=== PATIENT | female | born 1990 | race Caucasian/White ===

== ENCOUNTER 2021-11-10 09:44 | Emergency (ER) | payer OTHER, MEDICAID, SELFPAY ==
[2021-11-10 09:53] VITALS: BP 146/80; PULSE 78; RESP 16; TEMP 37; O2SAT 98; BMI 25.0
--- NOTE | 2021-11-10 10:17 | ED_ITS ---
HPI - General Adult General Chief complaint: Abdominal Pain Stated complaint: r/o appendicitis Time Seen by Provider: 11/10/21 10:09 Source: patient Mode of arrival: Wheelchair Limitations: no limitations History of Present Illness HPI narrative: Patient is a 31-year-old female who is sent over from the walk-in clinic for right lower quadrant abdominal pain and concern for appendicitis. She states that yesterday she did have some lower abdominal pain but did not think much of it. No fevers. No nausea vomiting. No urinary symptoms. No vaginal bleeding. She is skilled nursing through her menstrual cycle. No change in bowel habits. She has had a tubal ligation but no other abdominal surgeries. She woke up this morning had at some point shortly after waking up she started to develop right lower quadrant pain that is worsened since then. She was able to drink a small amount of water approximately 1 hour ago without vomiting. Does have pain with movement and touching the area. Went to the walk-in clinic and sent her here to the emergency department for evaluation. Related Data Home Medications Medication Instructions Recorded Confirmed No Known Home Medications 11/10/21 11/10/21 Allergies Allergy/AdvReac Type Severity Reaction Status Date / Time No Known Drug Allergies Allergy Unverified 11/10/21 09:56 Review of Systems Constitutional Constitutional: Denies fever(s) Cardiovascular Cardiovascular: Denies chest pain and Denies dyspnea Respiratory Respiratory: Denies dyspnea Gastrointestinal Gastrointestinal: Reports as per HPI and Reports system reviewed and no additional complaints, except as documented Genitourinary Genitourinary: Reports system reviewed and no additional complaints, except as documented and Denies dysuria Integumentary/Breasts Skin/Breast: Reports system reviewed and no additional complaints, except as documented Neurologic Neurologic: Reports system reviewed and no additional complaints, except as documented Hematologic/Lymphatic On Anticoagulants: No Patient History Medical History Healthy adult Social History Smoking Status: Former smoker Smoking Status: Former smoker alcohol intake frequency: 0-2 drinks per day Substance Use Type: does not use Exam Initial Vital Signs Initial Vital Signs: Vital Signs Temperature 98.6 F 11/10/21 09:53 Pulse Rate 78 11/10/21 09:53 Respiratory Rate 16 11/10/21 09:53 Blood Pressure 146/80 H 11/10/21 09:53 Pulse Oximetry 98 11/10/21 09:53 Const General: cooperative, healthy appearing and well developed [facility] Head: normal to inspection and normocephalic Resp Effort & Inspection: normal respiratory effort Auscultation: clear to auscultation bilaterally Cardio Palpation: normal PMI Rate: regular rate GI Inspection: normal to inspection Palpation: soft, No guarding, No rigid and tender Back/Spine/Pelvis Back: No CVA tenderness Skin General: no rashes or lesions noted Neuro General: patient alert, patient awake, patient oriented x3 and moves all extremities Extrem General: normal to inspection and capillary refill normal Psych Appearance: grossly normal and well kempt Course Orders Ordered: ED Orders 11/10/21 10:08 Complete Blood Count AUTO DIFF Stat Comprehensive Metabolic Panel Stat Lipase Stat 11/10/21 10:18 CT abdomen pelvis w con Stat 11/10/21 11:44 US pelvic complete Stat Discontinued Medications Sodium Chloride (Normal Saline 0.9%) 1,000 mls @ 1,000 mls/hr IV BOLUS ONE Stop: 11/10/21 11:17 Last Infusion: 11/10/21 13:05 Dose: 0 mls/hr Documented by: Admin: 11/10/21 11:11 Dose: 1,000 mls/hr Documented by: VAN Morphine Sulfate (Morphine 4 Mg/Ml Inj) 4 mg IV NOW ONE Stop: 11/10/21 10:19 Last Admin: 11/10/21 10:37 Dose: 4 mg Documented by: OSMAN Ondansetron HCl (Ondansetron 4 Mg/2 Ml Inj) 4 mg IV NOW ONE Stop: 11/10/21 10:31 Last Admin: 11/10/21 10:37 Dose: 4 mg Documented by: OSMAN Vital Signs Vital signs: Vital Signs - 8 hr 11/10/21 09:53 11/10/21 11:54 11/10/21 11:55 Temperature 98.6 F Pulse Rate 78 64 65 Respiratory Rate 16 18 Blood Pressure 146/80 H 110/53 L Pulse Oximetry 98 99 98 11/10/21 12:48 11/10/21 14:27 Temperature 98.5 F Pulse Rate 68 77 Respiratory Rate 18 Blood Pressure 109/82 108/79 Pulse Oximetry 98 99 Medical Decision Making Lab Data Lab results reviewed: Yes I reviewed the patient's lab results. Result diagrams: 11/10/21 10:08 11/10/21 10:08 Labs: Lab Results 11/10/21 11/10/21 Range/Units 10:08 10:08 WBC 5.4 (4.5-11.0) X10^3/uL RBC 4.39 (4.0-5.2) X10^6/uL Hgb 13.6 (12.0-16.0) g/dL Hct 40.8 (36-46) % MCV 92.8 (80-100) fL MCH 30.9 (26-34) PG MCHC 33.3 (30-36) % RDW 13.0 (11.6-14.8) % Plt Count 286 (150-400) X10^3/uL Neut % (Auto) 59.5 (50-75) % Lymph % (Auto) 29.7 (25-40) % Garrett % (Auto) 7.3 (3-14) % Eos % (Auto) 2.3 (2-4) % Baso % (Auto) 1.2 (0-2) % Neut # (Auto) 3200 (8971-3791) /uL Lymph # (Auto) 1600 (8828-4495) /uL Garrett # (Auto) 400 (0-900) /uL Eos # (Auto) 100 (0-450) /uL Baso # (Auto) 100 (0-100) /uL Sodium 138 (137-145) mmol/L Potassium 4.2 (3.4-5.1) mmol/L Chloride 104 (98-107) mmol/L Carbon Dioxide 27 (22-32) mmol/L BUN 11 (7-17) mg/dL Creatinine 0.64 (0.52-1.04) mg/dL Estimated GFR > 60.0 (>60) mL/min BUN/Creatinine Ratio 17.2 (6-22) Glucose 104 H (70-100) mg/dL Calcium 9.3 (8.4-10.2) mg/dL Total Bilirubin 0.4 (0.2-1.3) mg/dL AST 48 H (14-36) IU/L ALT 32 (<35) IU/L Alkaline Phosphatase 69 (38-126) U/L Total Protein 8.7 H (6.3-8.2) g/dL Albumin 5.1 H (3.5-5.0) g/dL Globulin 3.6 (1.7-4.1) g/dL Albumin/Globulin Ratio 1.4 (1.0-2.8) Lipase 112 (23-300) U/L Point of Care Testing Test Results Negative Urine Dip Bedside Urine Glucose Negative Bedside Urine Bilirubin - Negative Bedside Urine Ketone - Negative Urine Specific [place] 1.020 Bedside Urine Occult Blood - Negative Bedside Urine pH 6 Bedside Urine Protein - Negative Bedside Urine Urobilinogen - Negative Bedside Urine Nitrite - Negative Bedside Urine Leukocytes - Negative Esterase Point of care testing: Point of Care Testing Test Results Negative Urine Dip Bedside Urine Glucose Negative Bedside Urine Bilirubin - Negative Bedside Urine Ketone - Negative Urine Specific [place] 1.020 Bedside Urine Occult Blood - Negative Bedside Urine pH 6 Bedside Urine Protein - Negative Bedside Urine Urobilinogen - Negative Bedside Urine Nitrite - Negative Bedside Urine Leukocytes - Negative Esterase Imaging Data CT scan - abdomen/pelvis: Radiologist's Impression: [place] [address] CT Scan Report Signed Patient: Marlen Potter MR#: [id number] : 1990 Acct:[id number] Age/Sex: 31 / F Date of Service: 11/10/21 Loc: ED Accession Number: [id number] ?? Procedure: CT abdomen pelvis w con Ordering Provider: Michelet Mills D.O. PROCEDURE:? CT ABDOMEN PELVIS W CON ? INDICATIONS:? Right-sided abdominal pain ? TECHNIQUE:? After the administration of oral and IV contrast, axial sections were acquired from the lung bases to the pubic symphysis.? Coronal and sagittal reformats were performed.? For radiation dose reduction, the following was used:? automated exposure control, adjustment of mA and/or kV according to patient size. ? COMPARISON:? None. ? FINDINGS:? Image quality:? Excellent.? ? Lung bases:? Unremarkable.? ? Heart:? No significant findings. ? ? ABDOMEN: Liver:? Unremarkable.? ? Gallbladder:? Unremarkable.? ? Biliary ducts:? Unremarkable.? ? Pancreas:? Unremarkable.? ? Spleen:? Unremarkable.? ? Adrenal Glands:? Unremarkable.? ? Kidneys and Ureters:? No hydronephrosis.? ? ? Stomach and Bowel:? No small bowel obstruction.? No diverticulosis.? The appendix is not identified.? No appendiculolith. Peritoneum:? No abnormal intraperitoneal fluid.? No free air.? ? Ventral Wall: ? No hernia.? Abdominal Nodes:? No retroperitoneal or mesenteric adenopathy by size criteria.? Vessels:? Aorta and inferior vena cava are normal in size.? ? PELVIS: Pelvic Organs:? Uterus is unremarkable.? ? Bladder:? Small volume of air in the urinary bladder.? This is likely due to catheterization. ? Pelvic Nodes: No enlarged lymph nodes.? Miscellaneous: No inguinal hernias are seen. ? ? ? Bones:? Unremarkable.? IMPRESSION:? No acute abnormality is identified.? No free fluid is seen. ? The appendix is not identified.? Pelvic/targeted ultrasound may be helpful for further evaluation.? ? No hydronephrosis.? ? Dictated by: Yevgeniy Petty M.D. on 11/10/2021 at 11:29 ? ? Approved by: Yevgeniy Petty M.D. on 11/10/2021 at 11:38? MDM Narrative Medical decision making narrative: Initial CT scan unfortunately did not specifically identify the appendix over there is no secondary signs of appendicitis. No appendicolith. No leukocytosis. Her urinalysis is unremarkable. There is no other findings on the CT scan that would explain her symptoms today. Pelvic ultrasound shows left sided ovarian cyst however her presentation today has right-sided discomfort. No signs of ovarian torsion. She did feel much better after pain medication. I did discuss the case with Dr. Bojorquez on-call for General surgery who also evaluated the CT scan. She also feels that appendicitis is unlikely given her presentation and labs and CT scan findings. [facility] She does understand the lack of definitive diagnosis. We discussed other potential etiologies to include musculoskeletal and also potential skin issues to include zoster. She has no findings today consistent with zoster. No indication for antibiotics. Will have the patient contact her primary doctor for follow-up. She was given strict return precautions. She expressed understanding and agreement. Discharge Plan Departure Patient Disposition: Home Clinical Impression: Abdominal pain Instructions: DI for Abdominal Pain-Adult Activity Restrictions/Additional Instructions: Your CT scan and ultrasound and labs today are all very reassuring. There is no signs of an infection or appendicitis or anything that would require surgery or antibiotics. Please contact your primary doctor for a follow-up. Return to the emergency department for any new or worsening symptoms. Prescriptions: No Action No Known Home Medications 0RF Referrals: Alexis Tavarez MD [Primary Care Provider] -
--- NOTE | 2021-11-10 10:18 | DI.CT.S_ITS ---
PROCEDURE: CT ABDOMEN PELVIS W CON INDICATIONS: Right-sided abdominal pain TECHNIQUE: After the administration of oral and IV contrast, axial sections were acquired from the lung bases to the pubic symphysis. Coronal and sagittal reformats were performed. For radiation dose reduction, the following was used: automated exposure control, adjustment of mA and/or kV according to patient size. COMPARISON: None. FINDINGS: Image quality: Excellent. Lung bases: Unremarkable. Heart: No significant findings. ABDOMEN: Liver: Unremarkable. Gallbladder: Unremarkable. Biliary ducts: Unremarkable. Pancreas: Unremarkable. Spleen: Unremarkable. Adrenal Glands: Unremarkable. Kidneys and Ureters: No hydronephrosis. Stomach and Bowel: No small bowel obstruction. No diverticulosis. The appendix is not identified. No appendiculolith. Peritoneum: No abnormal intraperitoneal fluid. No free air. Ventral Wall: No hernia. Abdominal Nodes: No retroperitoneal or mesenteric adenopathy by size criteria. Vessels: Aorta and inferior vena cava are normal in size. PELVIS: Pelvic Organs: Uterus is unremarkable. Bladder: Small volume of air in the urinary bladder. This is likely due to catheterization. Pelvic Nodes: No enlarged lymph nodes. Miscellaneous: No inguinal hernias are seen. Bones: Unremarkable. IMPRESSION: No acute abnormality is identified. No free fluid is seen. The appendix is not identified. Pelvic/targeted ultrasound may be helpful for further evaluation. No hydronephrosis. Dictated by: Yevgeniy Petty M.D. on 11/10/2021 at 11:29 Approved by: Yevgeniy Petty M.D. on 11/10/2021 at 11:38
[2021-11-10 10:20] LABS: Add Manual Diff / Slide Review NO; Basophils Absolute Auto 100 /uL (0-100); Basophils Percent Auto 1.2 % (0-2); Eosinophils Absolute Auto 100 /uL (0-450); Eosinophils Percent Auto 2.3 % (2-4); Hematocrit 40.8 % (36-46); Hemoglobin 13.6 g/dL (12.0-16.0); Lymphocytes Absolute Auto 1600 /uL (1100-4500); Lymphocytes Percent Auto 29.7 % (25-40); Mean Corpuscular HGB Conc 33.3 % (30-36); Mean Corpuscular Hemoglobin 30.9 PG (26-34); Mean Corpuscular Volume 92.8 fL (80-100); Monocytes Absolute Auto 400 /uL (0-900); Monocytes Percent Auto 7.3 % (3-14); Neutrophils Absolute Auto 3200 /uL (1500-7000); Neutrophils Percent Auto 59.5 % (50-75); Platelet Count 286 X10^3/uL (150-400); Red Blood Cell Count 4.39 X10^6/uL (4.0-5.2); White Blood Cell Count 5.4 X10^3/uL (4.5-11.0)
[2021-11-10 10:31] LABS: Alanine Aminotransferase 32 IU/L (<35); Albumin 5.1 g/dL (3.5-5.0); Albumin Globulin Ratio 1.4 (1.0-2.8); Alkaline Phosphatase 69 U/L (38-126); Aspartate Aminotransferase 48 IU/L (14-36); BUN Creatinine Ratio 17.2 (6-22); Bilirubin Total 0.4 mg/dL (0.2-1.3); Blood Urea Nitrogen 11 mg/dL (7-17); Calcium 9.3 mg/dL (8.4-10.2); Carbon Dioxide 27 mmol/L (22-32); Chloride 104 mmol/L (98-107); Estimated Glomerular Filt Rate > 60.0 mL/min (>60); Globulin 3.6 g/dL (1.7-4.1); Glucose 104 mg/dL (70-100); HEMOLYSIS < 15 (0-50); Lipase 112 U/L (23-300); Potassium 4.2 mmol/L (3.4-5.1); Sodium 138 mmol/L (137-145); Total Protein 8.7 g/dL (6.3-8.2)
[2021-11-10] MEDS: MORPHINE 4 MG/ML INJ IV (10:37)
[2021-11-10] MEDS: ONDANSETRON 4 MG/2 ML INJ IV (10:37)
[2021-11-10] MEDS: SODIUM CHLORIDE 0.9% 1,000 ML 1000 ML IV (11:11)
--- NOTE | 2021-11-10 11:44 | DI.US.S_ITS ---
PROCEDURE: US PELVIC COMPLETE INDICATIONS: RIGHT ADNEXAL PAIN TECHNIQUE: Real-time scanning was performed of the pelvic organs, with image documentation. Additional endovaginal scanning was necessary due to incomplete visualization of the adnexal and endometrial structures by transabdominal scanning. COMPARISON: [facility], CT, CT ABDOMEN PELVIS W CON, 11/10/2021, 10:48. FINDINGS: Uterus: Uterus is anteverted and normal in size at 9.2 x 4.9 x 6.8 cm. The myometrium is homogeneous. The endometrium measures 10 mm combined thickness. Ovaries: The right ovary measures 2.5 x 0.9 x 1.9 cm. The left ovary measures 2.6 x 2.1 x 3.2 cm and demonstrates a complex cyst within it with peripheral vascularity that measures 1.8 x 1.3 x 1.8 cm. The ovaries otherwise have a normal sonographic appearance. No adnexal masses are seen. Normal appearing arterial waveforms are confirmed to each ovary. Other: No pathologic free abdominal or pelvic fluid. No appendix (either normal or abnormal) is identified on this study. IMPRESSION: No appendix (either normal or abnormal) is identified on this study. Negative for ovarian torsion. A likely LEFT ovarian hemorrhagic cyst can be seen. If it would be clinically appropriate, a followup pelvic ultrasound could be considered in 6 weeks to assure resolution/ improvement. We strive to produce accurate, complete, and clear reports of imaging services. To assist us in improving patient care, this report was composed using standard report templates and voice recognition software. Therefore, it may contain abnormal punctuation, insertions and/or omissions. Occasional wrong-word or sound-alike substitutions may occur. Though we review the report and make efforts to correct it, we do recommend that the report be read carefully in proper context to recognize any text inaccuracies. Dictated by: Lb Birch M.D. on 11/10/2021 at 11:47 Approved by: Lb Birch M.D. on 11/10/2021 at 11:50
[2021-11-10 11:54] VITALS: PULSE 64; O2SAT 99
[2021-11-10 11:55] VITALS: BP 110/53; PULSE 65; RESP 18; O2SAT 98
[2021-11-10 12:48] VITALS: BP 109/82; PULSE 68; TEMP 36.9; O2SAT 98
[2021-11-10 14:27] VITALS: BP 108/79; PULSE 77; RESP 18; O2SAT 99
== END 2021-11-10 14:27 | disposition home or self-care (01) ==
PROVIDERS: Emergency Provider Emergency Medicine; PCP Family Medicine
DX: R10.31 Right lower quadrant pain (principal)
CPT/HCPCS: 36415; 74177; 76856; 80053; 81003; 81025; 83690; 85025; 96361; 96374; 96375; 99284; J2270; J2405